=== PATIENT | male | born 1950 | race Caucasian/White ===

== ENCOUNTER → 2021-02-22 10:24 | Outpatient (CLI) | payer MEDICARE, OTHER, SELFPAY ==
[2021-02-22 12:34] LABS: COVID19 -Nasal RAPID Negative (Negative)
== END ==
PROVIDERS: Family Provider Family Medicine; Visit Provider Nurse Practitioner Family
DX: Z01.812 Encounter for preprocedural laboratory examination (principal); Z20.822 Contact with and (suspected) exposure to COVID-19
CPT/HCPCS: 87635; C9803

== ENCOUNTER 2021-02-24 08:58 | Day surgery (SDC) | payer MEDICARE, OTHER, SELFPAY ==
--- NOTE | 2021-02-24 | PATH_ITS ---
[facility] Accession Number: [id number] . 01 Material submitted: . colon - TRANSVERSE POLYPS . 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 MRV 02/26/2021 1117 Local . 02 Electronically signed: . Ruth Telles MD, Pathologist NPI- [id number] . 01 Gross description: . TRANSVERSE POLYPS: Received in formalin are multiple fragment(s) of godinez, soft tissue measuring 2.5 x 0.6 x 0.2 cm in aggregate submitted entirely in 1 cassette(s) /MICHAEL 02/25/2021 0428 Local . 02 Pathologist provided ICD-10: D12.3 . 02 CPT . 677290 Performed at: 01 [facility] [address] [place] [address], [place], [place] [id number] MD Andrew Topete MD Phone: [phone] Performed at: 02 [facility] [address] [place], [place] [id number] MD Ruth Telles MD Phone: [phone]
[2021-02-24 09:19] VITALS: BP 134/94; PULSE 66; RESP 16; TEMP 36.2; O2SAT 98; BMI 33.0
[2021-02-24] MEDS: SODIUM CHLORIDE 0.9% 1,000 ML 125 ML IV (09:31)
--- NOTE | 2021-02-24 09:46 | P.HP_ITS ---
History of Present Illness History of Present Illness Date Patient Seen: 02/24/21 Time Patient Seen: 09:46 Chief complaint: [facility] [place] Patient History Comment: High blood pressure. No family history of colon cancer. Family & Social History Social History: household members spouse Tobacco & Substance use: Smoking Status Never smoker alcohol intake former Substance Use Type does not use Meds Home Medications and Allergies Home Medications Medication Instructions Recorded Confirmed Type amlodipine 5 mg tablet (Norvasc) 5 mg PO DAILY #0 06/30/17 02/24/21 History aspirin 81 mg tablet,delayed 81 mg PO QDAY #0 06/30/17 02/24/21 History release atorvastatin 20 mg tablet (Lipitor) 20 mg PO DAILY #0 06/30/17 02/24/21 History carvedilol 25 mg tablet (Coreg) 12.5 mg PO BID #0 06/30/17 02/24/21 History potassium chloride 10 mEq 20 meq PO QDAY #0 06/30/17 02/24/21 History tablet,extended release(part/cryst) (Klor-Con M) valsartan 320 mg tablet (Diovan) 320 mg PO QDAY #0 06/30/17 02/24/21 History Allergies Allergy/AdvReac Type Severity Reaction Status Date / Time No Known Allergies Allergy Uncoded 02/24/21 08:47 Review of Systems Review of Systems ROS: Yes All systems reviewed with the patient and are negative except as otherwise documented Exam Vital Signs (past 8 hours): - 02/24/21 09:19 Temperature 97.2 F L Pulse Rate 66 Respiratory Rate 16 Blood Pressure 134/94 H Pulse Oximetry 98 Oxygen Delivery Method Room Air Const General: cooperative and comfortable Orientation: alert [facility] Head: normocephalic Ears: external ears normal Nose: external nose normal Face and sinus: normal facial exam Mouth: oral mucosae normal Eyes General: appearance normal, both eyes and all related structures Neck Neck: normal visual inspection Chest Chest: normal inspection of the chest Resp Effort & Inspection: normal respiratory effort Auscultation: clear to auscultation bilaterally Cardio Rate: regular rate Rhythm: regular rhythm Heart Sounds: no murmurs GI Inspection: normal to inspection Palpation: soft and No tender Auscultation: normal bowel sounds Skin General: no rashes or lesions noted and No jaundice Neuro General: patient alert and moves all extremities Cognition: normal cognition Speech: speech normal Extrem General: no pedal edema Psych Appearance: grossly normal Assessment & Plan Assessment & Plan narrative: 71-year-old male indicated for colon cancer screening. Asymptomatic. Colonoscopy is planned for today. Time Spent With Patient Critical Care time: I spent a total of [] minutes of critical care time on this patient's care today; this time is exclusive of procedural time.
--- NOTE | 2021-02-24 09:47 | PM.PREOP ---
Pre-operative Note COVID-19 COVID-19 status: Negative Result date/Date tested (Pos, Neg/Pending): 02/22/21 Interval Note History & Physical reviewed/Exam performed by Physician: Yes Changes to H&P: No H&P completed within 30 days and has changed as indicated here:: See today ASA Class (for procedural sedation): II
--- NOTE | 2021-02-24 10:34 | P.OP.ENDO_ITS ---
Operative Date/Time/Diagnoses Date of procedure: 02/24/21 Time of procedure: 10:34 Pre-op diagnosis: Colon cancer screening Post-op diagnosis: same Procedure & Clinicians Study performed: Colonoscopy with hot and cold snare polypectomies Same procedure as scheduled: Yes Indications: Colon cancer screening average risk Surgeon: Juan Carlos Handy Procedure Notes SCOAP/Timeout: Done Procedure in detail: After the risks and benefits were explained, written and verbal informed consent was obtained. The patient was brought into the procedure room and placed into the left lateral decubitus position. See nurse wireless communications engineer notes. Digital rectal examination was accomplished. The scope was introduced into the patient and advanced under direct visualization to the cecum as identified by the appendiceal orifice and ileocecal valve. The scope was slowly withdrawn to carefully examine the mucosa for any defects or lesions. Comprehensive imaging was accomplished throughout the rectum including the dentate line. The colon was decompressed, the scope was then removed from the patient who tolerated the procedure well. Bowel prep adequate after copious irrigation and suction. Adult colonoscope Scope withdrawal time: 8 minutes Sedation minutes: 18 Complications: none Impression: There were 2 polyps in the transverse colon ranging in size from 6-8 mm. These were sessile. The smaller was removed with cold snare and the larger with hot snare no additional pathology was appreciated throughout. Endoscopic diagnosis 1. Colon polyps x 2 2. Otherwise visually unremarkable colonoscopy to cecum Post-procedure Recommendations: Colonscopy in 5 years Plan for aftercare: 1. Await histopathology 2. Repeat colonoscopy will likely be suggested for 5 years time. Disposition: PACU
[2021-02-24 10:38] VITALS: BP 107/74; PULSE 70; RESP 10; TEMP 37.6; O2SAT 96
[2021-02-24 10:43] VITALS: BP 106/74; PULSE 60; RESP 14; O2SAT 98
[2021-02-24 10:48] VITALS: BP 124/89; PULSE 68; RESP 14; O2SAT 97
[2021-02-24 10:53] VITALS: BP 138/93; PULSE 64; RESP 15; TEMP 36.4; O2SAT 97
[2021-02-24 10:59] VITALS: BP 136/88; PULSE 64; RESP 12; TEMP 36.2; O2SAT 98
--- NOTE | 2021-02-24 11:25 | SUR.PHASEII ---
Patient care completed by Phase I RN, patient sitting in wheelchair waiting for ride to return. Given a beverage to help pass the time, denies pain/discomfort.
== END 2021-02-24 11:32 | disposition home or self-care (01) ==
PROVIDERS: Family Provider Family Medicine; Referring Provider Internal Medicine Gastroenterology; Visit Provider Internal Medicine Gastroenterology
PROC: 0DJD8ZZ Inspection of Lower Intestinal Tract, Via Natural or Artificial Opening Endoscopic (ICD-10-PCS; CPT 45378; principal; 2021-02-24 10:00)
DX: Z12.11 Encounter for screening for malignant neoplasm of colon (principal); D12.3 Benign neoplasm of transverse colon
CPT/HCPCS: 45385